=== PATIENT | female | born 1960 | race Caucasian/White ===

== ENCOUNTER → 2018-04-02 | Outpatient (CLI) | payer MEDICARE ==
[~2018-04-02] MED LIST: ASPI325T6 PO; ASPIRIN E.C. 8181 MG PO; COLACE 100100 MG/CAP PO; CYMBALTA 60MG60 MG PO; FERROUS SULFAT325 M2 PO; FOLIC ACID 40400 MCG PO; GLUCOPHAGE1000 MG PO; KLONOPIN2 MG PO; LOVENOX 4040 MG/0.4 SQ; NORCO 325 MG-7.1 TAB PO; PRAVACHOL 20MG20 MG PO; PRAVACHOL10 MG PO; PRILOSEC 20MG20 MG PO; PRINZIDE 25 MG-1 TAB PO; ROXICODONE 55 MG/TAB PO; Senokot-S PO; ULTRAM 50MG TAB50 MG PO; VITAMIN C500 MG PO; WELLBUTRIN XL300 M1 PO
== END ==
LOC: MC.RAD 02-17 13:40
DX: Z12.31 Encounter for screening mammogram for malignant neoplasm of breast (principal)

== ENCOUNTER 2018-04-26 14:13 | Day surgery (SDC) | payer MEDICARE ==
[~2018-04-26] VITALS: Ht 172.7 cm; Wt 110.7 kg
[2018-04-26] MEDS ORDERED: GLUCOPHAGE XR500 M1 PO (15:24)
[2018-04-26] MEDS ORDERED: JANUVIA 100MG100 MG PO (15:27)
[2018-04-26] MEDS ORDERED: ULTRAM 50MG TAB50 MG PO (15:29)
[2018-04-26] MEDS ORDERED: PRINIVIL10 MG PO (15:33)
[2018-04-26] MEDS ORDERED: ZANAFLEX 4MG TAB4 MG PO (15:36)
[2018-04-26] MEDS ORDERED: NEURONTIN600 MG/TAB PO (15:37)
[2018-04-26] MEDS ORDERED: ZYLOPRIM 300MG300 MG PO (15:38)
[2018-04-26 15:39] VITALS: BP 139/95; PULSE 100; TEMP 98.2
[2018-04-26 17:00] VITALS: BP 121/83; PULSE 102; TEMP 97.6
--- NOTE | 2018-04-26 17:00 | NUR ---
Patient arrives to [facility] [address] via cart, accompanied by Endo RN Rony. Bedside report received. Patient is alert and oriented. Ambulates with standby assist to chair in room. Monitoring applied - VSS and WNL on room air. Denies any pain or nausea. Offered and receives water to drink, refuses any food at this time. Family is at the bedside. Call light in reach. Will continue to monitor.
[2018-04-26 17:15] VITALS: BP 133/88; PULSE 88
--- NOTE | 2018-04-26 17:15 | NUR ---
VSS and WNL on room air. Patient denies any pain, nausea, or need. Tolerating PO well.
--- NOTE | 2018-04-26 17:23 | NUR ---
Dr. Mckinnon at the bedside and speaks with the patient.
[2018-04-26 17:30] VITALS: BP 143/86; PULSE 91
--- NOTE | 2018-04-26 17:30 | NUR ---
VSS and WNL on room air. Discharge criteria have been met. Discharge instructions discussed, denies any questions, and verbalizes understanding. PIV removed with catheter intact and hemostasis achieved. Patient changing to clothing independently.
--- NOTE | 2018-04-26 17:45 | NUR ---
Patient escorted to exit. Discharged to home with ride in private vehicle at 1745.
== END 2018-04-26 17:45 | disposition home or self-care (01) ==
LOC: SDCO 14:13
DX: Z12.11 Encounter for screening for malignant neoplasm of colon (principal); D12.5 Benign neoplasm of sigmoid colon; I10 Essential (primary) hypertension; E11.40 Type 2 diabetes mellitus with diabetic neuropathy, unspecified; Z79.84 Long term (current) use of oral hypoglycemic drugs; Z79.899 Other long term (current) drug therapy; J45.909 Unspecified asthma, uncomplicated; Z98.51 Tubal ligation status; Z96.653 Presence of artificial knee joint, bilateral; G47.33 Obstructive sleep apnea (adult) (pediatric); E78.00 Pure hypercholesterolemia, unspecified
CPT/HCPCS: J2704; J7030

== ENCOUNTER 2018-12-25 08:43 | Emergency (ER) | payer MEDICARE ==
[~2018-12-25] VITALS: Ht 172.7 cm; Wt 109.1 kg
[~2018-12-25 08:43] MED LIST changes: +GLUCOPHAGE XR500 M1 PO; +JANUVIA 100MG100 MG PO; +NEURONTIN600 MG/TAB PO; +PRINIVIL10 MG PO; +ZANAFLEX 4MG TAB4 MG PO; +ZYLOPRIM 300MG300 MG PO
[2018-12-25 08:47] VITALS: BP 125/68; TEMP 98.2
[2018-12-25 09:49] VITALS: PULSE 86
== END 2018-12-25 09:57 | disposition home or self-care (01) ==
LOC: COL.ER 08:43
DX: S49.91XA Unspecified injury of right shoulder and upper arm, initial encounter (principal); I10 Essential (primary) hypertension; E11.9 Type 2 diabetes mellitus without complications; Z79.84 Long term (current) use of oral hypoglycemic drugs; Z98.51 Tubal ligation status; W19.XXXA Unspecified fall, initial encounter; W22.8XXA Striking against or struck by other objects, initial encounter; Y92.009 Unspecified place in unspecified non-institutional (private) residence as the place of occurrence of the external cause

== ENCOUNTER → 2019-01-17 | Outpatient (CLI) | payer MEDICARE | LOC: COL.RAD 07:17 | DX: M79.604 Pain in right leg (principal); R42 Dizziness and giddiness | CPT/HCPCS: A9585 ==

== ENCOUNTER → 2020-02-21 | Outpatient (CLI) | payer MEDICARE | LOC: MC.RAD 12:44 | DX: N63.10 Unspecified lump in the right breast, unspecified quadrant (principal) ==

== ENCOUNTER 2020-10-02 00:14 | Emergency (ER) | payer MEDICARE ==
[~2020-10-02] VITALS: Ht 172.7 cm; Wt 105.5 kg
[2020-10-02 00:19] VITALS: TEMP 97.6
[2020-10-02 00:44] LABS: BASO % 0.2 % (0.0-2.0); GRAN # 13.6 (1.4-6.5); GRAN % 87.9 % (42.2-75.2); HEMATOCRIT 34.8 % (37.0-47.0); HEMOGLOBIN 10.6 g/dl (12.5-16.0); LYMPH # 1.2 (1.2-3.4); LYMPH % 7.5 % (20.0-51.0); MEAN CELL VOLUME 97 fl (80.0-100.0); MEAN CORPUSCULAR HEMOGLOBIN 30 pg (27.0-31.0); MEAN CORPUSCULAR HGB CONC 31 g/dl (33.0-37.0); MONO # 0.6 (0.1-0.6); MONO % 3.8 % (1.7-9.3); PLATELET COUNT 230 K/mm3 (130-400); RED BLOOD COUNT 3.58 M/mm3 (4.10-5.30); REDCELL DISTRIBUTION WIDTH-CV 13.7 % (11.5-14.5)
[2020-10-02 00:56] LABS: ALBUMIN 3.7 gm/dL (3.5-5.0); BILIRUBIN,TOTAL 0.2 mg/dL (0.0-1.0); CALCIUM 8.6 mg/dL (8.4-10.2); CREATININE, serum 5.55 (0.52-1.25); TOTAL PROTEIN 6.6 gm/dL (6.4-8.2)
[2020-10-02 00:59] LABS: POTASSIUM 8.3 mmol/L (3.4-5.0)
[2020-10-02] MEDS ORDERED: ULTRAM 50MG TAB50 MG PO (01:14)
[2020-10-02] MEDS ORDERED: INDERAL LA 80MG80 MG PO (01:20)
[2020-10-02] MEDS ORDERED: PREDNISONE20 MG PO (01:22)
[2020-10-02] MEDS ORDERED: PRIL40 PO (01:27)
[2020-10-02] MEDS ORDERED: SEROQUEL XR50 MG PO (01:28)
[2020-10-02] MEDS ORDERED: MAG-OX 400400 MG/TAB PO (01:32)
[2020-10-02] MEDS ORDERED: D3-5050000 IU PO (01:38)
[2020-10-02 03:19] LABS: COLLECTION METHOD CATHETER
[2020-10-02 03:25] LABS: MUCOUS Present /lpf; PH 6 (5-8); SQUAMOUS EPITHELIAL 0-2 /hpf; URINE APPEARANCE Clear; URINE BACTERIA None Seen /hpf; URINE BILIRUBIN Negative (NEGATIVE); URINE BLOOD 2+ (NEGATIVE); URINE COLOR Straw; URINE GLUCOSE 3+ (NEGATIVE); URINE KETONE Negative (NEGATIVE); URINE LEUKOCYTE ESTERASE Negative (NEGATIVE); URINE NITRATE Negative (NEGATIVE); URINE PROTEIN(semi-quant) Negative (NEGATIVE); URINE UROBILINOGEN Negative (NEGATIVE)
[2020-10-02 03:33] LABS: CALCIUM 9.4 mg/dL (8.4-10.2); CREATININE, serum 4.89 (0.52-1.25)
[2020-10-02 03:37] LABS: POTASSIUM 7.5 mmol/L (3.4-5.0)
[2020-10-02 04:00] VITALS: BP 96/70; PULSE 62
== END 2020-10-02 04:00 | disposition short-term general hospital (02) ==
LOC: COL.ER 00:14
PROVIDERS: Personal Emergency Response Attendant
DX: E87.2 Acidosis (principal); N17.9 Acute kidney failure, unspecified; R73.9 Hyperglycemia, unspecified; E87.5 Hyperkalemia; I95.9 Hypotension, unspecified; Z20.822 Contact with and (suspected) exposure to COVID-19; W06.XXXA Fall from bed, initial encounter; Y92.009 Unspecified place in unspecified non-institutional (private) residence as the place of occurrence of the external cause
CPT/HCPCS: J0696; J1815; J2704; J7030; J7060